=== PATIENT | female | born 1975 | race Caucasian/White ===

== ENCOUNTER 2017-02-11 18:33 | Emergency (ER) | payer OTHER ==
[2017-02-11 18:39] VITALS: TEMP 97.5
--- NOTE | 2017-02-11 18:46 | EDPHY ---
H & P Time Seen by Provider: 02/11/17 18:39 HPI/ROS: CHIEF COMPLAINT: Migraine, nausea/vomiting HISTORY OF PRESENT ILLNESS: This patient is a 41 y/o female with history of migraine headaches complaining of migraine with associated nausea and vomiting onset at 5:30am this morning. The headache is primarily in her forehead and radiates backwards. Similar to prior migraine TRINIDAD's. Associated with diarrhea and stomach cramping since this morning. Multiple coworkers have n/v/d. She denies fever, urinary complaints, cough, shortness of breath, or other associated symptoms. REVIEW OF SYSTEMS: A 10 point review of systems was performed and is negative with the exception of the elements mentioned in the history of present illness. Past Medical/Surgical History: Migraines. Social History: . Lives in [place]. Light tobacco use. Smoking Status: Light smoker Physical Exam: General Appearance: Alert, appears in pain Eyes: Pupils equal and round, no conjunctival pallor or injection ENT, Mouth: Mucous membranes moist Neck: Normal inspection Respiratory: Lungs are clear to auscultation Cardiovascular: Regular rate and rhythm Gastrointestinal: Abdomen is soft and non-tender Neurological: A&O, CN II-XII intact, motor/sensory intact Skin: Warm and dry, no rash Extremities: normal inspection Psychiatric: Mood and affect normal Constitutional: Initial Vital Signs Temperature (C) 36.4 C 02/11/17 18:36 Heart Rate 70 02/11/17 18:36 Respiratory Rate 16 02/11/17 18:36 Blood Pressure 122/71 H 02/11/17 18:36 O2 Sat (%) 100 02/11/17 18:36 O2 Delivery Mode Room Air Allergies/Adverse Reactions: No Known Allergies Allergy (Unverified 07/25/13 15:14) Home Medications: Medication Instructions Recorded NK [No Known Home Meds] 02/11/17 Medical Decision Making ED Course/Re-evaluation: 41 y/o female presents with a migraine TRINIDAD and gastroenteritis. Exam unremarkable. IV NS 1 liter and Zofran already given. Reglan, Benadryl and Decadron IV given. 8pm-nausea resolved, TRINIDAD starting to feel better. 8:24 Patient feels much better. Abd soft, NT. Neuro intact and TRINIDAD resolved. No further vomiting or diarrhea. Plan to d/c in good condition with prescription for Zofran. Follow up and return precautions discussed. The patient is comfortable with this plan. Differential Diagnosis: Headache including but not limited to subarachnoid hemorrhage, migraine headache , tension headache and infectious causes such as meningitis, pharyngitis and sinusitis. - Data Points Medications Given: Discontinued Medications Dexamethasone (Decadron Injection) 10 mg IVP EDNOW ONE Stop: 02/11/17 19:03 Last Admin: 02/11/17 19:29 Dose: 10 mg Diphenhydramine HCl (Benadryl Injection) 25 mg IVP EDNOW ONE Stop: 02/11/17 19:03 Last Admin: 02/11/17 19:30 Dose: 25 mg Sodium Chloride (Ns) 1,000 mls @ 0 mls/hr IV ONCE ONE PRN Reason: Wide Open Stop: 02/11/17 19:00 Last Admin: 02/11/17 19:00 Dose: 1,000 mls Metoclopramide HCl (Reglan Injection) 10 mg IVP EDNOW ONE Stop: 02/11/17 19:03 Last Admin: 02/11/17 19:33 Dose: 10 mg Ondansetron HCl (Zofran) 4 mg IVP EDNOW ONE Stop: 02/11/17 19:00 Last Admin: 02/11/17 19:00 Dose: 4 mg Ondansetron HCl (Zofran Odt 4 Mg Prepack#2) 1 btl TAKEHOME EDNOW ONE Stop: 02/11/17 19:48 Last Admin: 02/11/17 20:33 Dose: 1 btl Departure - Departure Disposition: Home, Routine, Self-Care Clinical Impression: Vomiting and diarrhea Migraine headache Qualifiers: Migraine type: without aura Status migrainosus presence: without status migrainosus Intractability: not intractable Qualified Code(s): G43.009 - Migraine without aura, not intractable, without status migrainosus Condition: Good Instructions: Ondansetron (By mouth), Migraine Headache (ED), Acute Nausea and Vomiting (ED) Additional Instructions: Zofran 1 tablet under the tongue every 6 hours as needed for nausea. Return for worsening symptoms or any concerns. Referrals: Tasneem Jorge MD [Medical Doctor] - As per Instructions Report Scribed for: Eusebia Luna Report Scribed by: Kylie Mcmullen Date of Report: 02/11/17 Time of Report: 18:45 Physician Review and Approval Statement: 02/11/17 18:45 Portions of this note were transcribed by a medical editor. I personally performed a history, physical exam, medical decision making, and confirmed accuracy of information the transcribed note.
[2017-02-11] MEDS ORDERED: ONDANSETRON 4 MG/2 ML VIAL ONE (18:49)
[2017-02-11] MEDS ORDERED: ONDANSETRON 4 MG/2 ML VIAL IVP ONE (18:59)
[2017-02-11] MEDS ORDERED: NS 1,000 ML IV ONE (18:59)
[2017-02-11] MEDS ORDERED: METOCLOPRAMIDE 10 MG/2 ML VIAL IVP ONE (19:02)
[2017-02-11] MEDS ORDERED: DEXAMETHASONE 10 MG/ML VIAL IVP ONE (19:02)
[2017-02-11] MEDS ORDERED: ONDANSETRON 4MG PREPACK#2 BTL TAKEHOME ONE (19:47)
[2017-02-11 20:35] VITALS: BP 99/74; PULSE 93; RESP 18; O2SAT 97
== END 2017-02-11 20:35 | disposition home or self-care (01) ==
DX: G43.009 Migraine without aura, not intractable, without status migrainosus (principal); R19.7 Diarrhea, unspecified; F17.200 Nicotine dependence, unspecified, uncomplicated
CPT/HCPCS: 96374; J1100; J1200; J2405; J2765

== ENCOUNTER → 2017-05-10 | Outpatient (CLI) | payer OTHER | LOC: FIMAGING 16:18 | PROVIDERS: ATTEND Obstetrics & Gynecology | DX: Z12.31 Encounter for screening mammogram for malignant neoplasm of breast (principal) ==